=== PATIENT | female | born 1940 | race African-American/Black ===

== ENCOUNTER → 2016-03-26 | Outpatient (CLI) | payer MEDICARE, MEDICAID ==
[~2016-03-26] MED LIST: ATOR10TA15 PO; AUGM875T PO; BENA40TA PO; BUME1TAB28 PO; CALCCAP2 PO; CLIN1CAP6 PO; DIABETIC SHOES; DOXY100C PO; GABA400C5 PO; HUMA100I3 SQ; HYDR25TA35 PO; LEVA750T PO; LEVEMIR SQ; LIDO16CR TOP; METO50TA PO; NITR0.2D2 T-DERMAL; NORT25CA PO; PAME10CA PO; PLAV75TA29 PO; TEDI1TAB PO; TRAM50TA PO; VENL37.5 PO; VENL37.54 PO; VITA100064 PO; VITACAP7 PO; WHEEMIS3
--- NOTE | 2016-03-27 10:23 | RADRPT ---
EXAM DATE/TIME: 03/26/2016 12:41 [place] COMPARISON: No previous studies available for comparison. EXTERNAL COMPARISON : [facility], XR ANKLE LEFT COMPLETE, December 29, 2015 INDICATIONS : Ulcer on left ankle. DOSE: 21 mCi Tc99m Ceretec labeled white blood cells IV SPECT IMAGIN min, 3 hrs IMAGNG: SPECT/CT imaging with fusion was performed. RADIATION DOSE: 1.7 CTDIvol (mGy) MEDICAL HISTORY : Diabetes mellitus type 1. Hypertension. Hyperlipidemia SURGICAL HISTORY : Hysterectomy. Cholecystectomy. Coronary stents x3 ENCOUNTER: Initial ACUITY: 1 week PAIN SCALE: 0/10 LOCATION: Left ankle TECHNIQUE: Following the in vitro labeling of autologous white cells and reinjection, whole body scan was perfor med at the specified times. SPECT imaging was performed at the specified time in sagittal, axial and coronal planes. Attenuation correction was performed with the computed tomography and both the atten uation correction and non-attenuation corrected data sets were reviewed. FINDINGS: There is an ulcer along the lateral aspect of the left ankle. There is a focal prominent accumulation of white blood cells at the ulcer site and in the subcutaneous soft tissues. There is no evidence of accumulation in the adjacent distal fibula. The bone appears to be not involved at this time. The up take appears to be confined to the subcutaneous soft tissues around the ulcer. A small area of nonspe cific uptake is also seen in the distal lateral left lower leg in the soft tissues.. CONCLUSION: Focal prominent accumulation of white blood cells are noted at the ulcer site and in the subcutaneous soft tissues surrounding the ulcer. There does not appear to be any bony involvement at this time. Beau Bustamante MD on March 27, 2016 at 10:17 Board Certified Radiologist. This report was verified electronically.
== END ==
LOC: HRAD 07:54
PROVIDERS: ATTEND Podiatrist Primary Podiatric Medicine
DX: E11.622 Type 2 diabetes mellitus with other skin ulcer (principal); E11.8 Type 2 diabetes mellitus with unspecified complications
CPT/HCPCS: 78807; 78999; A9569